=== PATIENT | female | born 1980 | race Caucasian/White ===

== ENCOUNTER 2024-07-07 22:08 | Emergency (ER) | payer OTHER, SELFPAY ==
[2024-07-07 22:18] VITALS: BP 115/79; PULSE 110; RESP 14; TEMP 36.8; O2SAT 100; BMI 26.5
--- NOTE | 2024-07-07 22:34 | XRR_ITS ---
PROCEDURE INFORMATION: Exam: XR Right Ankle Exam date and time: 07/07/2024 10:41 PM Age: 44 years old Clinical indication: Edema; No, it is generalized; Additional info: Pain/swelling/redness TECHNIQUE: Imaging protocol: Radiologic exam of the right ankle. Views: 3 or more views. COMPARISON: CR (LOW EXM, ) 07/07/2024 10:40 PM FINDINGS: Bones/joints: Normal. Soft tissues: Normal. XR/XR ankle RT min 3V* [id number] IMPRESSION: No acute findings.
--- NOTE | 2024-07-07 22:34 | XRR_ITS ---
PROCEDURE INFORMATION: Exam: XR Right Foot Exam date and time: 07/07/2024 10:40 PM Age: 44 years old Clinical indication: Edema; No, it is generalized; Additional info: Pain, swelling, redness to foot TECHNIQUE: Imaging protocol: Radiologic exam of the right foot. Views: 3 or more views. COMPARISON: No relevant prior studies available. FINDINGS: Bones/joints: Normal. Soft tissues: Nonspecific swelling of the dorsum of the foot XR/XR foot RT min 3V* [id number] IMPRESSION: As above.
--- NOTE | 2024-07-07 22:55 | ED_ITS ---
HPI - Extremity Problem 2 General: Chief complaint: Extremity Problem,Nontraumatic Stated complaint: Rt Foot Swollen Time Seen by Provider: 07/07/24 22:24 Source: patient Mode of arrival: ambulatory Limitations: no limitations History of Present Illness: Patient is a 44-year-old female who presents the emergency department complaining of right foot pain for the past day. Also notes that it has gotten increasingly swollen and red. States that she did not step on anything and does not report any trauma. Is not having any fevers, nausea or vomiting, or any other systemic signs of illness. States that she has noticed the redness has started to spread up her distal right lateral leg. States that she soak the foot in Epsom salt, has not tried any other [id number] medications. Mildly tachycardic, rest of her vitals within normal limits at this time. Denies a history of gout. Is not reporting any calf swelling or tenderness, no history of DVT. MD Complaint: extremity pain and extremity swelling Onset (ago): day(s) Pain Consistency: constant Location: right and other (Foot/ankle) Quality: burning Radiation: proximal Relieving factors: nothing Exacerbating factors: weight bearing and walking Associated symptoms: Deny chest pain, fever(s) or rash Related Data Previous Rx's ?Medication ?Instructions ?Recorded prednisone 20 mg tablet 60 mg (3 x 20 mg) PO ONCE 5 days 07/07/24 #15 tabs sulfamethoxazole 800 2 tab PO DAILY 7 days #14 ta bs 07/07/24 mg-trimethoprim 160 mg tablet (Bactrim DS) Allergies Allergy/AdvReac Type Severity Reaction Status Date / Time No Known Allergies Allergy Verified 07/07/24 22:22 Review of Systems 2 General: Reports: 10 or more systems reviewed and unremarkable except in HPI and below Const: Denies: fever(s) or chills Card: Denies: chest pain Resp: Denies: dyspnea GI: Denies: abdominal pain, nausea, vomiting or diarrhea Musc: Reports: extremity pain (Right foot/ankle) and extremity swelling (Right foot/ankle) Skin/Breast: Reports: erythema (Right foot and ankle) and skin pain; Denies: rash, skin tenderness or new lesions Neuro: Denies: headache(s) Physical Exam 2 Const: COMMON NORMALS: no acute distress, patient oriented x3, no limitations, healthy appearing, alert and well nourished HENMT: COMMON NORMALS: normocephalic and atraumatic HEAD & SCALP: n ormocephalic and atraumatic Neck/C-Spine: COMMON NORMALS: full ROM, supple and no meningeal signs Resp: COMMON NORMALS: normal respiratory effort, No use of accessory muscles and clear to auscultation bilaterally AUSCULTATION: clear to auscultation bilaterally Cardio: COMMON NORMALS: regular rate and regular rhythm RATE: regular rate RHYTHM: regular rhythm Extremity: COMMON NORMALS: full ROM, capillary refill normal, no clubbing, cyanosis or edema and no calf tenderness NARRATIVE EXTREMITY EXAM: Tenderness to palpation to the right lateral foot as well as extension into the forefoot. Tender to palpation at the right lateral ankle with some swelling present. DP/PT pulses palpable. Neuro: COMMON NORMALS: patient oriented x3, moves all extremities, no focal motor deficits and no sensory deficits noted SENSORIUM/ORIENTATION: Yes alert MENINGEAL SIGNS: Yes no meningeal signs Skin: NARRATIVE SKIN EXAM: Erythema noted to patient's right foot and ankle. No obvious wounds Course 2 Vital Signs: Vital signs: Vital Signs Temperature 98.2 F 07/07/24 22:18 Pulse Rate 110 H 07/07/24 22:18 Respiratory Rate 14 07/07/24 22:18 Blood Pressure 115/79 07/07/24 22:18 Pulse Oximetry 100 07/07/24 22:18 Oxygen Delivery Me thod Room Air 07/07/24 22:18 MDM - Extremity (Nontraumatic) Medical Decision Making Patient presented with acute onset pain swelling and redness to right foot. Tender to palpation of the right lateral foot and forefoot, redness noted to be extending proximally up the right leg. No systemic symptoms were reported and lab work obtained was unremarkable including negative CRP and ESR. X-ray showed soft tissue swelling and I am suspecting cellulitis at this time we will treat with antibiotics and steroids. Toradol given here for pain and informed her to follow-up with primary care and return with any worsening. Lab Data 07/07/24 22:55 07/07/24 22:55 Radiology Impressions Ankle X-Ray 07/07/24 22:34 IMPRESSION: No acute findings. Foot X-Ray 07/07/24 22:34 IMPRESSION: As above. Laboratory Results WBC 10.33 10^3/uL (3.29-11.43) 07/07/24 22:55 RBC 4.44 10^6/uL (3.85-5.65) 07/07/24 22:55 Hgb 14.00 g/dL (11.27-16.99) 07/07/24 22:55 Hct 40.1 % (36-47) 07/07/24 22: MCV 90.3 fl (85-98) 07/07/24 22: MCH 31.5 pg (27-33) 07/07/24 22: MCHC 34.9 g/dL (30-55) 07/07/24 22: RDW 12.4 % (12.1-15.1) 07/07/24: Plt Count 245 10^3/cmm (157-399) 07/07/24 22: MPV 10.2 fL (7.4-10.4) 07/07/24 22:55 Neut % (Auto) 65.0 % 07/07/24 22:55 Lymph % (Auto) 22.9 % 07/07/24 22:55 [place] % (Auto) 10.0 % 07/07/24 22:55 Eos % (Auto) 1.5 % 07/07/24: Baso % (Auto) 0.4 % 07/07/24: Neut # (Auto) 6.72 10^3/uL (1.8-7.7) 07/07/24: Lymph # (Auto) 2.4 10^3/uL (0.8-4.8) 07/07/24: [place] # (Auto) 1.0 10^3/uL (0.2-0.9) H 07/07/24 22:55 Eos # (Auto) 0.2 10^3/uL (0.0-0.8) 07/07/24 22:55 Baso # (Auto) 0.0 10^3/uL (0.0-0.1) 07/07/24:55 Nucleated RBC % (auto) 0 % 07/07/24 22: Nucleated RBCs # 0.0 /100WBC 07/07/24 22: ESR 6 mm/hr (0-15) 07/07/24 22:55 Sodium 138 mmol/L (136-145) 07/07/24 22:55 Potassium 3.5 mmol/L (3.5-5.1) 07/07/24 22:55 Chloride 103 mmol/L (98-107) 07/07/24 22:55 Carbon Dioxide 25 mmol/L (22-29) 07/07/24 22:55 Anion Gap 13.5 (5-19) 07/07/24 22:55 BUN 7 mg/dL (6-20) 07/07/24 22:55 Creatinine 0.5 mg/dL (0.5-0.9) 07/07/24 22:55 GFR Calculation 134.7 mL/min (90-130) H 07/07/24 22:55 Glucose 111 mg/dL (65-115) 07/07/24 22:55 Calculated Osmolality 285 mOsm/kg (285-295) 07/07/24 22:55 Calcium 9.2 mg/dL (8.5-10.5) 07/07/24 22:55 Total Bilirubin 1.1 mg/dL (0.15-1.2) 07/07/24 22:55 AST 57 U/L (0-32) H 07/07/24 22:55 ALT 63 U/L (0-33) H 07/07/24 22:55 Alkaline Phosphatase 67 U/L (35-105) 07/07/24 22:55 C-Reactive Protein 3.0 mg/L (0.0-4.9) 07/07/24 22:55 Total Protein 7.9 g/dL (6.6-8.7) 07/07/24 22:55 Albumin 4.1 g/dL (3.5-5.2) 07/07/24 22:55 Globulin 3.8 g/dL (1.3-4.6) 07/07/24 22:55 All radiology interpretation(s) finalized by discharge Discharge Plan Discharge Patient Disposition: Home Clinical Impression: Cellulitis Qualifiers: Site of cellulitis: extremity Site of cellulitis of extremity: lower extremity Laterality: right Qualified Code(s): L03.115 - Cellulitis of right lower limb Condition: Stable Prescriptions: New sulfamethoxazole-trimethoprim [Bactrim DS] 800-160 mg tablet 2 tab PO DAILY 7 Days Qty: 14 0RF prednisone 20 mg tablet 60 mg PO ONCE 5 Days Qty: 15 0RF Discharge Orders: Discharge ED (Routine); Ordered 07/07/24 Ordered By: Jacoby Vaughn Patient Instructions: Cellulitis (ED) Activity Restrictions/Additional Instructions: Take the prednisone as prescribed. Take antibiotics. Ibuprofen and Tylenol for pain. Follow-up with primary care and return with any new or worsening. Print Language: Tajik Coding Level of Care Code ED Emergency Room Rn for Hector Lockwood
[2024-07-07 23:11] LABS: Basophils % 0.4 %; Eosinophils # 0.2 10^3/uL (0.0-0.8); Eosinophils % 1.5 %; Hematocrit 40.1 % (36-47); Lymphocytes # 2.4 10^3/uL (0.8-4.8); Lymphocytes % 22.9 %; Mean Corpuscular HGB Conc 34.9 g/dL (30-55); Mean Corpuscular Hemoglobin 31.5 pg (27-33); Mean Corpuscular Volume 90.3 fl (85-98); Mean Platelet Volume 10.2 fL (7.4-10.4); Neutrophils # 6.72 10^3/uL (1.8-7.7); Nucleated Red Blood Cells % 0 %; Platelet Count 245 10^3/cmm (157-399); Red Blood Count 4.44 10^6/uL (3.85-5.65); Red Cell Distribution Width 12.4 % (12.1-15.1); White Blood Count 10.33 10^3/uL (3.29-11.43)
[2024-07-07 23:18] LABS: Erythrocyte Sedimentation Rate 6 mm/hr (0-15)
[2024-07-07 23:19] LABS: Alanine Aminotransferase 63 U/L (0-33); Albumin Level 4.1 g/dL (3.5-5.2); Alkaline Phosphatase 67 U/L (35-105); Anion Gap 13.5 (5-19); Aspartate Amino Transferase 57 U/L (0-32); Blood Urea Nitrogen 7 mg/dL (6-20); Calcium 9.2 mg/dL (8.5-10.5); Carbon Dioxide 25 mmol/L (22-29); Chloride 103 mmol/L (98-107); Creatinine Clr Calc Pharmacy 129.0993; Globulin 3.8 g/dL (1.3-4.6); Glomerular Filtration Rate 134.7 mL/min (90-130); Glucose 111 mg/dL (65-115); Osmolality Calculated 285 mOsm/kg (285-295); Potassium 3.5 mmol/L (3.5-5.1); Sodium 138 mmol/L (136-145); Total Bilirubin 1.1 mg/dL (0.15-1.2); Total Protein 7.9 g/dL (6.6-8.7)
[2024-07-07] MEDS: ketorolac 10 mg Tablet PO (23:35)
== END 2024-07-07 23:40 | disposition home or self-care (01) ==
PROVIDERS: Emergency Provider Physician Assistant
DX: L03.115 Cellulitis of right lower limb (principal)
CPT/HCPCS: 36415; 73610; 73630; 80053; 85025; 85651; 86140; 99284